=== PATIENT | male | born 1965 | race Caucasian/White ===

== ENCOUNTER 2019-05-20 14:13 | Inpatient (IN) | payer SELFPAY ==
[~2019-05-20] VITALS: Ht 160 cm; Wt 71.2 kg
[2019-05-20 14:28] VITALS: BP 173/82
--- NOTE | 2019-05-20 14:34 | NUR ---
PT AMBULATED TO ER BED 05
[2019-05-20] MEDS ORDERED: ONDANSETRON 4 MG/2 ML VIAL IVP ONE ×2 (15:00→18:00)
[2019-05-20] MEDS ORDERED: MORPHINE SULFATE 4 MG/ML SYR IVP ONE ×2 (15:00→18:00)
--- NOTE | 2019-05-20 15:00 | NUR ---
ERMD at bedside
[2019-05-20 15:29] LABS: BASOPHILS # (AUTO) 0.1 K/uL (0.00-0.22); EOSINOPHILS % (AUTO) 0.5 % (0.0-4.0); HEMATOCRIT 42.5 % (36-52); HEMOGLOBIN 14.5 g/dL (12.0-18.0); LYMPHOCYTES # (AUTO) 0.9 K/uL (2.0-11.5); LYMPHOCYTES % (AUTO) 9.1 % (20.5-51.1); MEAN CORPUSCULAR HEMOGLOBIN 28 pg (27-31); MEAN CORPUSCULAR HGB CONC 34 g/dL (33-37); MEAN CORPUSCULAR VOLUME 81.9 fL (80-94); MONOCYTES # (AUTO) 0.5 K/uL (0.8-1.0); MONOCYTES % (AUTO) 5.6 % (1.7-9.3); NEUTROPHILS # (AUTO) 7.8 K/uL (1.8-7.7); NEUTROPHILS % (AUTO) 83.8 % (42.2-75.2); PLATELET COUNT (AUTO) 180 K/uL (140-450); RED BLOOD CELL COUNT(AUTO) 5.19 MIL/uL (4.20-6.10); RED CELL DISTRIBUTION WIDTH 13.6 % (11.6-13.7); WHITE BLOOD COUNT (AUTO) 9.4 K/uL (4.8-10.8)
[2019-05-20] MEDS ORDERED: diphenhydrAMINE 50 MG/ML VIAL IVP ONE (15:35)
--- NOTE | 2019-05-20 15:40 | NUR ---
C/O UPPER ABD PAIN RADIATING TO R LOWER ABD 6/10 ABD SHARP X2 DAYS ACCOMPANIED BY DIARRHEA. PT DENIES N/V/FEVER. ABD SOFT/FLAT/NON TENDER, BOWEL SOUNDS PRESENT X4. BED IN LOW POSITION, PT PLACED IN GOWN, SIDE RAIL UP X1.
[2019-05-20 15:43] LABS: APPEARANCE,URINE CLEAR (CLEAR); BILIRUBIN,URINE NEGATIVE (NEGATIVE); BLOOD, URINE TRACE-L (NEGATIVE); COLOR,URINE YELLOW (YELLOW); LEUKOCYTE ESTERASE ,URINE NEGATIVE (NEGATIVE); NITRITE, URINE NEGATIVE (NEGATIVE); PH,URINE 5.5 (5.0-9.0); UGLUCOSE 1+ (NEGATIVE)
[2019-05-20 15:46] LABS: ALBUMIN 3.7 g/dL (3.4-5.0); CARBON DIOXIDE 28.2 mmol/L (21-32); CREATININE 0.8 mg/dL (0.6-1.3); POTASSIUM 4.2 mmol/L (3.5-5.1); TOTAL BILIRUBIN 0.4 mg/dL (0.0-1.0)
--- NOTE | 2019-05-20 17:50 | NUR ---
Pt reports pain 5/10 at this time, pt is RQ more pain medication. ERMD made aware and will put in orders
--- NOTE | 2019-05-20 18:00 | NUR ---
ermd at bedside
[2019-05-20] MEDS ORDERED: KETOROLAC 15 MG/ML VIAL IVP PRN (18:30)
[2019-05-20] MEDS ORDERED: DOCUSATE SODIUM 100 MG GELCAP PO PRN (18:30)
[2019-05-20] MEDS ORDERED: ONDANSETRON 4 MG/2 ML VIAL IM/IVP PRN (18:30)
[2019-05-20] MEDS ORDERED: MORPHINE SULFATE 2 MG/ML SYR IVP PRN (18:30)
[2019-05-20] MEDS ORDERED: ACETAMINOPHEN 325 MG TAB PO PRN (18:30)
[2019-05-20] MEDS ORDERED: DEXTROSE 50% 50 ML SYR IVP PRN (18:30)
[2019-05-20] MEDS ORDERED: METF850T PO (18:39)
--- NOTE | 2019-05-20 18:39 | NUR ---
Pt asleep in bed, at bedside
[2019-05-20] MEDS ORDERED: BISACODYL 10 MG SUPP RC ONE ×2 (19:15→20:28)
[2019-05-20 19:19] LABS: PROTHROMBIN TIME 9.2 secs (10.8-13.4)
[2019-05-20 19:29] LABS: MAGNESIUM 1.7 mg/dL (1.8-2.4); THYROID STIMULATING HORMONE 5.59 uIU/mL (0.34-3.74)
--- NOTE | 2019-05-20 19:52 | NUR ---
Patient will be admitted to care of DR. MUSTAFA. Admited to MED SURG. Will go to [id number] . Belongings list completed. Report to KADEN SCOTT.
[2019-05-20 19:54] LABS: BARBITURATE, URINE NEG. ng/ml (NEG <=200); BENZODIAZEPINE, URINE NEG. ng/mL (NEG <=200); CANNABINOID, URINE NEG. ng/mL (NEG <=50); COCAINE, URINE NEG. ng/mL (NEG <=300); OPIATE, URINE NEG. ng/mL (NEG <=2000); PHENCYCLIDINE SCREEN,URINE NEG. ng/mL (NEG <=25)
[2019-05-20 20:00] VITALS: BP 133/81
--- NOTE | 2019-05-20 20:00 | NUR ---
RECEIVED BEDSIDE REPORT FROM ED NURSE AND TOOK OVER CARE OF PT. PT IS SWISS SPEAKING MALE. ADMITTED FOR UPPER ABDOMINAL PAIN AND DIAGNOSED W/ ACUTE CHOLECYSTITIS. HX OF DM. ALLERGIC TO SHELLFISH. FULL CODE. PT IS AMBULATORY AND INDEPENDENT. HAS 20 G OF THE RIGHT AC THAT IS ASYMPTOMATIC, INTACT, AND PATENT. PT HAS COMPLAINT OF 10/10 PRESSURE PAIN OF THE ABDOMINAL. PT IS NPO EXCEPT MEDS. BED IS AT THE LOWEST POSITION AND LOCKED. PT LEFT IN SEMI FOWLERS. CALL LIGHT WITHIN REACH. WILL CONTINUE TO MONITOR PT.
[2019-05-20] MEDS ORDERED: MAG SULF 2000 MG/WATER PREMIX 50 ML IV ONE (20:10)
[2019-05-20] MEDS ORDERED: cefTRIAXone 2,000 MG VIAL ONE (20:27)
[2019-05-20] MEDS: DEXT 5% / NACL 0.45% 1,000 ML IV SCH (20:39)
[2019-05-20] MEDS: cefTRIAXone 2,000 MG in DEXTROSE 5% 100 ML IV SCH (20:39)
[2019-05-20] MEDS: BLOOD GLUCOSE MONITORING 1 DEV DEV FS SCH (21:03)
[2019-05-20] MEDS: metroNIDAZOLE 500 MG/NS PREMIX 100 ML IV SCH (22:01)
[2019-05-20] MEDS ORDERED: INFLUENZA VACCINE QUAD 0.5 ML SYR IMVAC PRN (22:40)
[2019-05-21] VITALS: BP 109/67
--- NOTE | 2019-05-21 00:15 | NUR ---
CHECKED ON PT. PT ASLEEP. BED IN LOWEST POSITION, LOCKED. CALL LIGHT WITHIN REACH. WILL CONTINUE TO MONITOR.
--- NOTE | 2019-05-21 02:16 | NUR ---
CHECKED ON PT. NO SIGNS OF DISTRESS. ASSISTED PT TO THE RESTROOM TO VOID. BED IS IN LOWEST POSITION, LOCKED. CALL LIGHT WITHIN REACH. WILL CONTINUE TO MONITOR
[2019-05-21] MEDS: metroNIDAZOLE 500 MG/NS PREMIX 100 ML IV SCH ×3 (04:31→20:27)
[2019-05-21] MEDS: DEXT 5% / NACL 0.45% 1,000 ML IV SCH ×2 (04:33→11:34)
[2019-05-21 06:04] LABS: BASOPHILS # (AUTO) 0.1 K/uL (0.00-0.22); BASOPHILS % (AUTO) 1.2 % (0.0-2.0); EOSINOPHILS # (AUTO) 0.2 K/uL (0-0.4); EOSINOPHILS % (AUTO) 2.9 % (0.0-4.0); HEMATOCRIT 40.4 % (36-52); LYMPHOCYTES # (AUTO) 1.8 K/uL (2.0-11.5); LYMPHOCYTES % (AUTO) 30.9 % (20.5-51.1); MEAN CORPUSCULAR HEMOGLOBIN 28 pg (27-31); MEAN CORPUSCULAR HGB CONC 35 g/dL (33-37); MONOCYTES # (AUTO) 0.6 K/uL (0.8-1.0); MONOCYTES % (AUTO) 9.6 % (1.7-9.3); NEUTROPHILS # (AUTO) 3.2 K/uL (1.8-7.7); NEUTROPHILS % (AUTO) 55.4 % (42.2-75.2); PLATELET COUNT (AUTO) 176 K/uL (140-450); RED BLOOD CELL COUNT(AUTO) 4.99 MIL/uL (4.20-6.10); RED CELL DISTRIBUTION WIDTH 13.6 % (11.6-13.7); WHITE BLOOD COUNT (AUTO) 5.8 K/uL (4.8-10.8)
[2019-05-21] MEDS: INSULIN LISPRO SLIDING SCALE 100 UNITS/ML VIAL SUBQ PRN ×4 (06:22→20:31)
--- NOTE | 2019-05-21 06:22 | NUR ---
BLOOD SUGAR CHECKED WITH 175, COVERAGE GIVEN, DENIES ANY PAIN, MAINTAINED ON NPO, IVF INFUSING WELL, MONITORED CLOSELY.
[2019-05-21 06:33] LABS: MAGNESIUM 2.3 mg/dL (1.8-2.4); PHOSPHORUS 2.7 mg/dL (2.5-4.9)
[2019-05-21 06:34] LABS: CHOL/HDL RATIO 3.9 (1-4.5)
[2019-05-21 06:46] LABS: ANION GAP 11.9 (8-16); CARBON DIOXIDE 29.1 mmol/L (21-32); CREATININE 0.7 mg/dL (0.6-1.3)
--- NOTE | 2019-05-21 07:22 | NUR ---
RECEIVED BEDSIDE REPORT FROM MARINE EQUIPMENT TEST ENGINEER NURSE. PT IS ASLEEP, NO S/S OF DISTRESS NOTED. PT IS ON ROOM AIR, SKIN IS INTACT. PT IS NPO FOR HIDA SCAN THIS AM. IV IT R AC 20 G INFUSING D5 1/2 NS 120 ML/HR. PT IS AMBULATORY. CALL LIGHT IS WITHIN REACH. WILL CONTINUE TO MONITOR.
--- NOTE | 2019-05-21 07:25 | NUR ---
PT SLEEPING, NO SIGNS OF DISTRESS, BEDSIDE REPORT GIVEN TO KADEN EVERETT FOR CONTINUITY OF CARE.
[2019-05-21] MEDS: BLOOD GLUCOSE MONITORING 1 DEV DEV FS SCH ×4 (07:29→20:31)
[2019-05-21 08:00] VITALS: BP 122/72
--- NOTE | 2019-05-21 08:32 | NUR ---
PT TAKEN FOR HIDA SCAN
--- NOTE | 2019-05-21 10:10 | NUR ---
PT IS BACK FROM HIDA SCAN. Addendum: 05/21/19 at [address] RN HIDA SCAN NEGATIVE FOR CHOLECYSTITIS OR BILIARY OBSTRUCTION
[2019-05-21] MEDS: metFORMIN 850 MG TAB PO SCH ×2 (10:27→17:31)
[2019-05-21] MEDS: LACTOBACILLUS RHAMNOSUS GG 1 EACH CAP PO SCH (10:27)
[2019-05-21] MEDS: PANTOPRAZOLE 40 MG TABEC PO SCH (10:27)
[2019-05-21] MEDS: cefTRIAXone 2,000 MG in DEXTROSE 5% 100 ML IV SCH (10:32)
--- NOTE | 2019-05-21 10:41 | NUR ---
AM MEDS ADMINISTERED, PT TOLERATED WELL.
--- NOTE | 2019-05-21 11:32 | NUR ---
PT LYING COMFORTABLY IN BED, NO DISTRESS, NO C/O PAIN. A RELATIVE IS VISITING AT BEDSIDE.
--- NOTE | 2019-05-21 12:02 | NUR ---
PT ADVANCED TO FULL LIQUID DIET.
[2019-05-21] MEDS: NACL 0.9% 1,000 ML IV SCH ×2 (12:27→23:23)
--- NOTE | 2019-05-21 12:50 | NUR ---
PT EATING FULL LIQUID LUNCH, TOLERATING IT WELL.
--- NOTE | 2019-05-21 13:51 | NUR ---
PT SEEN BY DR ROBERT
[2019-05-21 16:00] VITALS: BP 106/61
--- NOTE | 2019-05-21 18:33 | NUR ---
PT IS AWAKE AND COMFORTABLE, VISITING WITH HIS . NO S/S OF DISTRESS, DENIES PAIN.
--- NOTE | 2019-05-21 19:21 | NUR ---
PT ENDORSED TO CLINICAL GENETICS LABORATORY CHIEF NURSE IN STABLE CONDITION.
--- NOTE | 2019-05-21 19:22 | NUR ---
RECEIVED PT ON BED TALKING TO FAMILY MEMBERS AT BEDSIDE, TOLERABLE PAIN 2/10 AT THIS TIME, STATED TOLERATING FULL LIQUID DIET, IVF INFUSING WELL, PLAN OF CARE DISCUSSED, SAFETY MEASURES IN PLACE, CALL LIGHT WITHIN REACH.
--- NOTE | 2019-05-21 20:35 | NUR ---
BLOOD SUGAR CHECKED WITH 183 RESULT, COVERAGE GIVEN, BEDTIME SNACK PROVIDED, CONSUMED 100%, ALL NEEDS ATTENDED.
[2019-05-22] VITALS: BP 124/76
--- NOTE | 2019-05-22 | NUR ---
SEEN PT SLEEPING, EASILY AROUSABLE, VITAL SIGNS STABLE, TOLERABLE PAIN 2/10 AT THIS TIME, IVF INFUSING WELL, CONTINUE TO MONITOR CLOSELY.
--- NOTE | 2019-05-22 03:00 | NUR ---
ROUNDS MADE, SEEN PT JUST BACK FROM TOILET, DENIES PAIN AT THIS TIME BUT STATED HAVING LOOSE STOOL, PT WAS MEDICATED WITH DULCOLAX SUPPOSITORY ON FOR CONSTIPATION, WILL MONITOR CLOSELY.
[2019-05-22] MEDS: metroNIDAZOLE 500 MG/NS PREMIX 100 ML IV SCH ×2 (04:19→12:56)
--- NOTE | 2019-05-22 04:25 | NUR ---
PT AWAKE WATCHING A FOOTBALL GAME ON TELEVISION, DENIES ANY PAIN, DUE FLAGYL IVPB ADMINISTERED, ALL NEEDS ATTENDED, MONITORED CLOSELY.
[2019-05-22] MEDS: BLOOD GLUCOSE MONITORING 1 DEV DEV FS SCH ×2 (06:32→11:50)
--- NOTE | 2019-05-22 07:13 | NUR ---
PT AWAKE, NO SIGNS OF DISTRESS, BEDSIDE REPORT GIVEN TO KADEN HEADLEY FOR CONTINUITY OF CARE.
--- NOTE | 2019-05-22 07:13 | NUR ---
RECEIVED PATIENT FROM GRANTS SPECIALIST NURSE FOR CONTINUITY OF CARE. PATIENT IS AWAKE, PERSIAN SPEAKING BUT UNDERSTANDS JAMAICAN. RESPIRATIONS EVEN AND UNLABORED, ROOM AIR. VISIBLE CHEST RISE NOTED. MED-SURG. ABDOMEN SOFT, ROUND, NONTENDER. BOWEL SOUNDS ACTIVE X4 QUADS. SKIN WARM, DRY, AND INTACT. IV IN THE RIGHT AC G20 RUNNING NS AT 100 ML/HR. IV PATENT AND FLUSHING WELL. PATIENT IS AMBULATORY, UNIVERSAL FALL PRECAUTIONS. BED IN LOW POSITION. CALL LIGHT IS WITHIN REACH. WILL CONTINUE TO MONITOR.
[2019-05-22 07:22] LABS: BASOPHILS # (AUTO) 0.1 K/uL (0.00-0.22); BASOPHILS % (AUTO) 0.9 % (0.0-2.0); EOSINOPHILS # (AUTO) 0.3 K/uL (0-0.4); EOSINOPHILS % (AUTO) 4.8 % (0.0-4.0); HEMATOCRIT 39.9 % (36-52); HEMOGLOBIN 13.8 g/dL (12.0-18.0); LYMPHOCYTES # (AUTO) 1.7 K/uL (2.0-11.5); LYMPHOCYTES % (AUTO) 27.4 % (20.5-51.1); MEAN CORPUSCULAR HEMOGLOBIN 28 pg (27-31); MEAN CORPUSCULAR HGB CONC 35 g/dL (33-37); MEAN CORPUSCULAR VOLUME 81.7 fL (80-94); MONOCYTES # (AUTO) 0.5 K/uL (0.8-1.0); MONOCYTES % (AUTO) 8.6 % (1.7-9.3); NEUTROPHILS # (AUTO) 3.7 K/uL (1.8-7.7); NEUTROPHILS % (AUTO) 58.3 % (42.2-75.2); PLATELET COUNT (AUTO) 174 K/uL (140-450); RED BLOOD CELL COUNT(AUTO) 4.88 MIL/uL (4.20-6.10); RED CELL DISTRIBUTION WIDTH 13.6 % (11.6-13.7); WHITE BLOOD COUNT (AUTO) 6.3 K/uL (4.8-10.8)
[2019-05-22 07:48] LABS: ANION GAP 10.5 (8-16); CARBON DIOXIDE 31.1 mmol/L (21-32); CREATININE 0.9 mg/dL (0.6-1.3); POTASSIUM 4.6 mmol/L (3.5-5.1)
[2019-05-22 07:58] LABS: MAGNESIUM 1.9 mg/dL (1.8-2.4); PHOSPHORUS 3.3 mg/dL (2.5-4.9)
[2019-05-22 08:00] VITALS: BP 136/77
[2019-05-22] MEDS: NACL 0.9% 1,000 ML IV SCH (08:29)
[2019-05-22] MEDS: PANTOPRAZOLE 40 MG TABEC PO SCH (08:29)
[2019-05-22] MEDS: metFORMIN 850 MG TAB PO SCH (08:29)
[2019-05-22] MEDS: cefTRIAXone 2,000 MG in DEXTROSE 5% 100 ML IV SCH (08:29)
[2019-05-22] MEDS: LACTOBACILLUS RHAMNOSUS GG 1 EACH CAP PO SCH (08:29)
--- NOTE | 2019-05-22 08:29 | NUR ---
GIVEN MORNING MEDICATIONS PO SCHEDULED. HANG ROCEPHIN VIA IVPB. EXPLAINED TO PATIENT MEDS AND SIDE EFFECTS. PATIENT VERBALIZED UNDERSTANDING. WILL CONTINUE TO MONITOR
--- NOTE | 2019-05-22 08:36 | NUR ---
PATIENT HAS BEEN SCREENED AND CATEGORIZED MODERATE NUTRITION RISK. PATIENT WILL BE SEEN WITHIN 3-5 DAYS OF ADMISSION. 05/23/19 05/25/[address]
[2019-05-22] MEDS ORDERED: METF850T PO (09:12)
[2019-05-22 09:30] VITALS: BP 136/77
--- NOTE | 2019-05-22 10:51 | NUR ---
FOLLOWED UP WITH SOCIAL SERVICE, GUY, REGARDING [facility]. SHE'LL BE MEETING WITH THE PATIENT SHORTLY
--- NOTE | 2019-05-22 11:35 | NUR ---
DISCHARGE PLANNING: THIS IS A 53 YEAR OLD MALE PATIENT FROM HOME, WHO CAME IN DUE TO GRADUAL ONSET ABDOMINAL PIAN X 1 DAY. PAST MEDICAL HISTORY INCLUDE DM II. INITIAL DIAGNOSIS OF ACUTE CHOLECYSTITIS. CURRENT LABS INCLUDE WBC 6.3, H/H 13.8/39.9, NA/K 139/4.6, BUN/CREA 13/0.9. UDS NEGATIVE. SURGICAL CONSULT WITH DR ROBERT IN PLACE. ON METRONIDAZOLE AND ROCEPHIN. FOR DC TO HOME TODAY.
--- NOTE | 2019-05-22 12:10 | NUR ---
GIVEN INSULIN 3 UNITS FOR BLOOD GLUCOSE 193. GIVEN IT IN THE LEFT UPPER ARM. EXPLAINED TO PATIENT MED AND SIDE EFFECTS. PATIENT VERBALIZED UNDERSTANDING. WILL CONTINUE TO MONITOR
[2019-05-22] MEDS: INSULIN LISPRO SLIDING SCALE 100 UNITS/ML VIAL SUBQ PRN (12:13)
--- NOTE | 2019-05-22 12:56 | NUR ---
HANG FLAGYL VIA IVPB. EXPLAINED TO PATIENT MED AND SIDE EFFECTS. PATIENT VERBALIZED UNDERSTANDING. BED IN LOW POSITION. CALL LIGHT IS WITHIN REACH. WILL CONTINUE TO MONITOR
--- NOTE | 2019-05-22 13:23 | NUR ---
PATIENT REFUSED FOR BLOOD SUGAR TO BE CHECKED. GIVEN CRANBERRY JUICE TO BRING SUGAR BACK UP. WILL CONTINUE TO MONITOR Addendum: 05/22/19 at 1411 by Princess Adali Araujo RN DISREGARD. WRONG ENTRY
--- NOTE | 2019-05-22 14:05 | NUR ---
GIVEN FLU VACCINE IN THE LEFT UPPER ARM. EXPLAINED TO PATIENT MED. PATIENT VERBALIZED UNDERSTANDING.
--- NOTE | 2019-05-22 14:16 | NUR ---
GIVEN DISCHARGE ORDER. USED [employer] ROOM SERVICE MANAGER DANUTA #[id number]. DISCUSSED TO PATIENT THAT HE NEEDS TO MAKE AN APPT WITH HIS PCP WITHIN 3-5 DAYS OR IF NOT, TO MAKE AN APPT TO [facility]. EXPLAINED THAT DR. NEAL CONTINUED HIS METFORMIN AND HE NEEDS TO PICK IT UP FROM HIS PREFERRED PHARMACY. PATIENT REQUESTED TO BE OFF FROM WORK FOR 2 DAYS. WILL INFORM RESIDENT DOCTOR. PATIENT VERBALIZED UNDERSTANDING. NO FURTHER QUESTIONS Addendum: 05/22/19 at 1418 by Princess Adali Araujo RN DISCHARGE INSTRUCTION GIVEN.
--- NOTE | 2019-05-22 14:38 | NUR ---
REMOVED IV AND ID BAND. WILL WAIT FOR DAUGHTER TO COIL FINISHER HIM UP
--- NOTE | 2019-05-22 14:56 | NUR ---
DR. WALLS STATED NO TO WORK EXCUSE. PATIENT IS AWARE
--- NOTE | 2019-05-22 15:00 | NUR ---
DISCHARGED PATIENT VIA WHEELCHAIR. NO PAIN. NO SOB. PATIENT IS IN STABLE CONDITION
[2019-05-23 06:08] LABS: HEPATITIS A ANTIBODY IGM Negative (Negative); HEPATITIS B CORE AB TOTAL Negative (Negative); HEPATITIS B SURFACE ANTIBODY Non Reactive (.); HEPATITIS B SURFACE ANTIGEN Negative (Negative)
== END 2019-05-22 15:00 | disposition home or self-care (01) | DRG 446 ==
LOC: MED 14:13 → MTU 18:51
PROVIDERS: ADMIT General Practice; ATTEND General Practice
DX: K81.0 Acute cholecystitis (principal); I10 Essential (primary) hypertension; E86.0 Dehydration; E11.21 Type 2 diabetes mellitus with diabetic nephropathy; E88.89 Other specified metabolic disorders; Z79.84 Long term (current) use of oral hypoglycemic drugs; Z91.013 Allergy to seafood; Z83.3 Family history of diabetes mellitus; Z23 Encounter for immunization
CPT/HCPCS: 36415; 76705; 78445; 80048; 80053; 80305; 81003; 82150; 82948; 83036; 83690; 83735; 83880; 84100; 84134; 84439; 84443; 85025; 85610; 85730; 86704; 86706; 86708; 86709; 86803; 87081; 87086; 87340; 93005; 96374; 96375; 96376; 99285; A9510; J0696; J1200; J1885; J2270; J2405; J3475; J3490; J7030; J7060; Q0092; Q9967

== ENCOUNTER 2019-07-14 14:43 | Inpatient (IN) | payer MEDICAID ==
[~2019-07-14] VITALS: Ht 162.6 cm; Wt 78.9 kg
[~2019-07-14 14:43] MED LIST: METF850T PO
[2019-07-14 14:56] VITALS: BP 134/82
--- NOTE | 2019-07-14 15:17 | NUR ---
DR. AGUIRRE AT BEDSIDE.
--- NOTE | 2019-07-14 15:17 | NUR ---
Note undone in EDM - 07/14/19 at 1522 by [facility] 53 Y/M PRESENTS TO ED FOR RUQ ABD PAIN X 6 DAYS. PT SAW HIS PCP AND WAS GIVEN OMEPRAZOLE AND ADVISED TO COME FOLLOW UP IN ED. PT REPORTS PAIN IS ON AND OFF 08/05, EDEMA NOTED TO RUQ OF ABD. PT REPORTED CHILLS LAST NIGHT. PT DENIES N/V/D/CONTIPAITON OR FEVERS. PT A &O X 4. RR EVEN AND UNLABORED. LUNGS CLEAR. ABD SOFT. BS ACTIVE X 4. EDEMA NOTED TO RUQ OF ABD, TENDER AND GUARDING UPON PALPATION. DENIES DYSURIA. PMH- DM RX- OMEPRAZOLE, METFORMIN ALLERGIES- SHELLFISH
--- NOTE | 2019-07-14 15:20 | NUR ---
53 Y/M PRESENTS TO ED FOR RUQ ABD PAIN X 6 DAYS. PT SAW HIS PCP AND WAS GIVEN OMEPRAZOLE AND ADVISED TO COME FOLLOW UP IN ED. PT REPORTS PAIN IS ON AND OFF 5/10, EDEMA NOTED TO RUQ OF ABD. PT REPORTED CHILLS LAST NIGHT. PT DENIES N/V/D/CONTIPAITON OR FEVERS. PT A &O X 4. RR EVEN AND UNLABORED. LUNGS CLEAR. ABD SOFT. BS ACTIVE X 4. EDEMA NOTED TO RUQ OF ABD, TENDER AND GUARDING UPON PALPATION. DENIES DYSURIA. PMH- DM RX- OMEPRAZOLE, METFORMIN ALLERGIES- SHELLFISH
[2019-07-14] MEDS ORDERED: NACL 0.9% 500 ML IV ONE (15:27)
[2019-07-14] MEDS ORDERED: KETOROLAC 30 MG/ML VIAL IVP ONE (15:30)
--- NOTE | 2019-07-14 16:10 | NUR ---
STAT LABS DRAWN FROM IV AND SPOKE TO RAUN FROM LAB TO [employer] ATTENDANT SPECIMENS.
[2019-07-14 16:16] LABS: BASOPHILS # (AUTO) 0.1 K/uL (0.00-0.22); BASOPHILS % (AUTO) 0.8 % (0.0-2.0); EOSINOPHILS # (AUTO) 0.2 K/uL (0-0.4); HEMATOCRIT 40.8 % (36-52); HEMOGLOBIN 13.5 g/dL (12.0-18.0); LYMPHOCYTES # (AUTO) 1.4 K/uL (2.0-11.5); LYMPHOCYTES % (AUTO) 22.2 % (20.5-51.1); MEAN CORPUSCULAR HEMOGLOBIN 28 pg (27-31); MEAN CORPUSCULAR HGB CONC 33 g/dL (33-37); MEAN CORPUSCULAR VOLUME 84.7 fL (80-94); MONOCYTES # (AUTO) 0.6 K/uL (0.8-1.0); MONOCYTES % (AUTO) 9.1 % (1.7-9.3); NEUTROPHILS # (AUTO) 3.9 K/uL (1.8-7.7); NEUTROPHILS % (AUTO) 63.9 % (42.2-75.2); PLATELET COUNT (AUTO) 269 K/uL (140-450); RED BLOOD CELL COUNT(AUTO) 4.82 MIL/uL (4.20-6.10); RED CELL DISTRIBUTION WIDTH 13.8 % (11.6-13.7); WHITE BLOOD COUNT (AUTO) 6.2 K/uL (4.8-10.8)
[2019-07-14 16:37] LABS: ALBUMIN 2.7 g/dL (3.4-5.0); CARBON DIOXIDE 27.1 mmol/L (21-32); CREATININE 1.1 mg/dL (0.6-1.3); POTASSIUM 4.1 mmol/L (3.5-5.1); TOTAL BILIRUBIN 0.2 mg/dL (0.0-1.0)
--- NOTE | 2019-07-14 17:47 | NUR ---
PT RESTING IN BED. RR EVEN AND UNLABORED. VSS. ALL NEED MET AT THIS TIME. WILL CONTINUE TO MONITOR.
[2019-07-14] MEDS ORDERED: DEXTROSE 50% 50 ML SYR IVP PRN (18:15)
[2019-07-14] MEDS ORDERED: ACETAMINOPHEN 325 MG TAB PO PRN (18:15)
[2019-07-14] MEDS ORDERED: ONDANSETRON 4 MG/2 ML VIAL IM/IVP PRN (18:15)
[2019-07-14] MEDS ORDERED: DOCUSATE SODIUM 100 MG GELCAP PO PRN (18:15)
--- NOTE | 2019-07-14 18:15 | NUR ---
PATIENT ARRIVED VIA WHEELCHAIR FROM ER. RECEIVED REPORT FROM KADEN ENNIS. PATIENT AWAKE, ALERT AND ORIENTED X4. INTRODUCED SELF. PLANS OF CARE DISCUSSED. IV INTACT AND PATENT TO RIGHT AC. ORIENTED TO STAFF, ROOM AND CALL LIGHT. WILL ENDORSE TO NIGHT NURSE FOR CONTINUITY OF CARE.
--- NOTE | 2019-07-14 18:15 | NUR ---
Patient will be admitted to care of DR. MUSTAFA. Admited to [facility]. Will go to room 112 B. Belongings list completed. Report to KADEN GALVEZ.
[2019-07-14 18:47] VITALS: BP 140/87
[2019-07-14] MEDS: DEXT 5% /NACL 0.9% 1,000 ML IV SCH (18:49)
[2019-07-14 19:07] LABS: MAGNESIUM 2.1 mg/dL (1.8-2.4); PHOSPHORUS 3.8 mg/dL (2.5-4.9)
--- NOTE | 2019-07-14 19:15 | NUR ---
RECEIVED ENDORSEMENT FROM AM SHIFT RN. PATIENT IS LYING IN BED. AWAKE, ALERT, ORIENTED X4. RESPIRATION EVEN AND UNLABORED. DENIES PAIN. ALLERGIC TO SHELLFISH. FULL CODE. PATIENT IS ON NPO. WITH IV SITE TO RAC 20G. INTACT AND PATENT WITH INFUSING IVF. PLAN OF CARE WAS DISCUSSED. CALL LIGHT WITHIN REACH.
[2019-07-14 19:29] LABS: PROTHROMBIN TIME 11.1 secs (10.8-13.4)
[2019-07-14] MEDS: BLOOD GLUCOSE MONITORING 1 DEV DEV FS SCH (21:00)
[2019-07-14] MEDS ORDERED: MORPHINE SULFATE 2 MG/ML SYR IVP SCH (21:10)
--- NOTE | 2019-07-14 21:30 | NUR ---
PATIENT WAS TAKEN TO NUCLEAR MEDICINE DEPT. TO DO HIDA SCAN.
--- NOTE | 2019-07-14 22:32 | NUR ---
PATIENT IS CURRENTLY DOING THE HIDA SCAN.
--- NOTE | 2019-07-14 22:55 | NUR ---
GAVE MORPHINE 2MG IVP FOR HIDA SCAN PROCEDURE. PATIENT TOLERATED WELL.
[2019-07-15] VITALS: BP 135/78
--- NOTE | 2019-07-15 00:10 | NUR ---
PATIENT FINISHED HIDA SCAN AND BACK IN HIS ROOM. PATIENT IS RESTING. KEPT COMFORTABLE.
[2019-07-15] MEDS ORDERED: cefTRIAXone 1,000 MG VIAL ONE (00:43)
--- NOTE | 2019-07-15 00:47 | NUR ---
ROCEPHIN 1G IVPB GIVEN ORDERED. NO A/R NOTED. TOLERATED WELL.
--- NOTE | 2019-07-15 00:48 | NUR ---
PATIENT REFUSED INSULIN INJECTION 2 UNITS. EXPLAINED RISKS AND BENEFITS BUT STILL PATIENT REFUSED. NO SOB. PATIENT DENIES PAIN. NOT IN ANY ACUTE DISTRESS. WILL CONTINUE TO MONITOR.
--- NOTE | 2019-07-15 01:00 | NUR ---
PRELIMINARY REPORT OF HIDA SCAN PROCEDURE WAS RECEIVED VIA FAX AND FILED IT TO PATIENT'S CHART.
[2019-07-15] MEDS: INSULIN LISPRO SLIDING SCALE 100 UNITS/ML VIAL SUBQ PRN ×5 (01:07→22:03)
[2019-07-15 04:00] VITALS: BP 136/76
[2019-07-15] MEDS: metroNIDAZOLE 500 MG/NS PREMIX 100 ML IV SCH ×3 (04:05→21:16)
--- NOTE | 2019-07-15 04:09 | NUR ---
DUE MEDS GIVEN ORDERED. NO A/R NOTED. TOLERATED WELL. PATIENT IS SLEEPING.
[2019-07-15] MEDS: BLOOD GLUCOSE MONITORING 1 DEV DEV FS SCH ×6 (06:40→21:00)
[2019-07-15] MEDS: DEXT 5% /NACL 0.9% 1,000 ML IV SCH ×2 (06:44→12:41)
--- NOTE | 2019-07-15 07:10 | NUR ---
PATIENT IS IN STABLE CONDITION. ENDORSE TO AM SHIFT RN FOR CONTINUITY OF CARE.
[2019-07-15 07:12] LABS: BASOPHILS % (AUTO) 0.9 % (0.0-2.0); EOSINOPHILS # (AUTO) 0.3 K/uL (0-0.4); EOSINOPHILS % (AUTO) 5.8 % (0.0-4.0); HEMATOCRIT 39.5 % (36-52); HEMOGLOBIN 13.2 g/dL (12.0-18.0); LYMPHOCYTES # (AUTO) 1.8 K/uL (2.0-11.5); LYMPHOCYTES % (AUTO) 35.3 % (20.5-51.1); MEAN CORPUSCULAR HEMOGLOBIN 28 pg (27-31); MEAN CORPUSCULAR HGB CONC 34 g/dL (33-37); MEAN CORPUSCULAR VOLUME 84.7 fL (80-94); MONOCYTES # (AUTO) 0.6 K/uL (0.8-1.0); MONOCYTES % (AUTO) 11.6 % (1.7-9.3); NEUTROPHILS # (AUTO) 2.3 K/uL (1.8-7.7); NEUTROPHILS % (AUTO) 46.4 % (42.2-75.2); PLATELET COUNT (AUTO) 263 K/uL (140-450); RED BLOOD CELL COUNT(AUTO) 4.67 MIL/uL (4.20-6.10)
--- NOTE | 2019-07-15 07:16 | NUR ---
RECEIVED REPORT FROM B[employer] PRODUCTION ASSOCIATE NURSE FOR CONTINUITY OF CARE. PT IS LYING IN BED, SUPINE, AA&OX4. RESPIRATIONS ARE EVEN AND UNLABORED, BREATHING TO RA. RECEIVED REPORT FROM [facility] IV IS INTACT AND PATENT. SKIN INTACT. REVIEWED PLAN OF CARE WITH PT. NO DISTRESS NOTED. SAFETY MEASURES IN PLACE; CALL LIGHT WITHIN REACH, BED IN LOW POSITION. WILL CONTINUE TO MONITOR.
[2019-07-15 07:26] LABS: ANION GAP 10.2 (8-16); CARBON DIOXIDE 28.1 mmol/L (21-32); POTASSIUM 4.3 mmol/L (3.5-5.1)
[2019-07-15 08:00] VITALS: BP 122/72
[2019-07-15] MEDS ORDERED: metFORMIN 850 MG TAB PO SCH (09:00)
[2019-07-15] MEDS: PANTOPRAZOLE 40 MG INJ VIAL IVP SCH (10:37)
[2019-07-15] MEDS: ATORVASTATIN 20 MG TAB PO SCH (10:38)
--- NOTE | 2019-07-15 10:45 | NUR ---
PT'S SCHEDULED MEDS GIVEN. BP: 122/72. PT TOLERATED PO MED WELL. MEDICATION EDUCATION PROVIDED, WITH PT VERBALIZING UNDERSTANDING. NO DISTRESS NOTED. SAFETY MEASURES IN PLACE WILL CONTINUE TO MONITOR.
--- NOTE | 2019-07-15 12:02 | NUR ---
RECEIVED CALL FROM LEIDA IN RADIOLOGY. LEIDA STATED THAT THE PRELIMINARY REPORT FOR [facility] IS READY. DR. VILLALOBOS IS AWARE.
--- NOTE | 2019-07-15 12:50 | NUR ---
URINE SAMPLE COLLECTED. IV FLUIDS HUNG, AND RUNNING PER ORDERS. BLOOD GLUES LEVEL: 183. WILL PROVIDE COVERAGE. PT IS SITTING ON BED, WATCHING TV. NO DISTRESS NOTED WILL CONTINUE TO MONITOR.
--- NOTE | 2019-07-15 13:16 | NUR ---
DISCHARGE PLANNING: THIS IS A 53 Y/O MALE PATIENT FROM HOME, WHO CAME IN DUE TO RIGHT SIDED ABDOMINAL PAIN X1 WEEK. PAST MEDICAL HISTORY INCLUDE DM. INITIAL DIAGNOSIS OF CHOLECYSTITIS. GALLBLADDER US SHOWED GALLBLADDER SLUDGE WITH GALLBLADDER WALL THICKENING AND POSSIBLE PERICHOLECYSTIC FLUID, FATTY LIVER. SURGICAL CONSULT WITH DR. EATON IN PLACE-NOT SEEN YET. PATIENT IS PLACED ON NPO FOR POSSIBLE CHOLECYSTECTOMY TODAY. ON PROTONIX, FLAGYL AND ROCEPHIN IV. DC PLAN BACK TO HOME ONCE STABLE. Addendum: 07/17/19 at 1238 by Veronica Benoit CM DC PLANNING: POST OP DAY #[address] EATON , INCREASED TRANSAMINITIS POST OP RECOMMENDED GI CONSULT WITH DR RAMIREZ, ORDERED HIDA SCAN . DC PLAN PER DR RAMIREZ. CM TO FOLLOW Addendum: 07/18/19 at 1128 by Veronica Benoit DC PLANNING: RECEIVED A CALL FROM DR EATON STATED PATIENT CESAR MATHIS NEEDS TO BE TRANSFERED TO THE HIGHER LEVEL DR EATON CONTACTED [facility] SURGEON DR JUAREZ IS ACCEPTING PATIENT HIS NUMBER [phone] AND HE ALSO SPOKE WITH THE CM [phone] OR [phone] . RECEIVED A CALL FROM THE CM AT [facility] AND REQUESTED THE PAPERWORK TO BE TRANSFERRED TO [phone] AND FAXED ALL THE PAPERWORK CM TO FOLLOW Addendum: 07/18/19 at 1334 by Veronica Benoit DC PLANNING: RECEIVED A CALL FROM [facility] SPOKE WITH KRISTOFER VASQUEZ WAITING FOR THE BED , BED CONTROL WILL CALL BACK WHEN BED AVAILABLE. ARRANGED TRANSPORT WITH [facility] PLACE IT WILL CALL . CM TO FOLLOW Addendum: 07/18/19 at 1608 by Mor Esquivel WILBER contacted [facility] and spoke to Kayy [phone]. Per Kayy, bed is still unavailable. Addendum: 07/18/19 at 1638 by Veronica Benoit DC PLANNING: STILL WAITING FOR BED FROM [facility] FOLLOW UP [phone] AND ONCE YOU RECEIVE A BED THE TRANSPORT IS ON WILL CALL WITH [facility] #[phone]
--- NOTE | 2019-07-15 13:28 | NUR ---
2 UNITS OF INSULIN COVERAGE GIVEN FOR BGL: 183. FLAGYL IVPB HUNG, AND RUNNING PER ORDERS. WILL CONTINUE TO MONITOR.
[2019-07-15] MEDS ORDERED: MEPERIDINE 25 MG/ML SYR IVP PRN (13:55)
[2019-07-15] MEDS ORDERED: diphenhydrAMINE 50 MG/ML VIAL IVP PRN (13:55)
[2019-07-15] MEDS ORDERED: ONDANSETRON 4 MG/2 ML VIAL IVP PRN (13:55)
[2019-07-15] MEDS ORDERED: NACL 0.9% 1,000 ML IV SCH (13:55)
--- NOTE | 2019-07-15 14:05 | NUR ---
PT WAS TAKEN OFF UNIT FOR SURGERY, LAPAROSCOPIC CHOLECYSTECTOMY. SPOKE TO PT'S DAUGHTER , IVON, WHO WOOLD LIKE TO BE NOTIFIED WHEN PT IS BACK ON UNIT FROM SURGERY. IVON: [phone].
[2019-07-15] MEDS ORDERED: BUPIVACAINE-MPF 0.25% 30 ML VIAL INJ ONE (14:11)
[2019-07-15 16:00] VITALS: BP 122/73
[2019-07-15] MEDS: NACL 0.9% 1,000 ML IV SCH ×2 (16:35→22:46)
[2019-07-15 17:13] LABS: ALBUMIN 2.4 g/dL (3.4-5.0); ANION GAP 9.6 (8-16); CARBON DIOXIDE 26.3 mmol/L (21-32); CREATININE 1.1 mg/dL (0.6-1.3); POTASSIUM 4.9 mmol/L (3.5-5.1); TOTAL BILIRUBIN 0.4 mg/dL (0.0-1.0)
[2019-07-15] MEDS ORDERED: HYDROmorphone PFS 2 MG/ML SYR ONE (17:17)
[2019-07-15] MEDS: HYDROmorphone 1 MG/ML AMP IVP PRN ×2 (17:19→17:29)
--- NOTE | 2019-07-15 17:31 | NUR ---
PT OFF UNIT CUP LEFT AT BEDSIDE IS ALSO LEFT AT BEDSIDE
--- NOTE | 2019-07-15 17:40 | NUR ---
PT IS BACK ON THE UNIT FROM SURGERY. REPORT GIVEN BY AGUSTIN. 4 SMALL ABDOMINAL INCISIONS NOTED, SEALED WITH DERMABOND. PT IS RESTING. VITAL SIGNS TAKEN; BP:122/73, PULSE: 85, TEMP: 97.2, REP: 20, SPO2: 91% NO DISTRESS NOTED. SAFETY MEASURES IN PLACE. WILL CONTINUE TO MONITOR.
--- NOTE | 2019-07-15 18:01 | NUR ---
SPOKE WITH IVON, PT'S DAUGHTER. INFORMED HER THAT THE PT IS NOW BACK ON THE UNIT AND IN STABLE CONDITION. PLEASE CALL IVON WITH UPDATES, AND INFORM PT THAT FAMILY WOULD LIKE TO SPEAK WITH HIM, WHEN HE AWAKES.
--- NOTE | 2019-07-15 19:29 | NUR ---
ENDORSED TO GRAIN ELEVATOR MOTOR STARTER NURSE FOR CONTINUITY OF CARE. PATIENT IS IN STABLE CONDITION.
--- NOTE | 2019-07-15 19:30 | NUR ---
RECEIVED FROM AM RN IN BED S/P LAP CHOLECYSTECTOMY . PT. SLEEPING AT THIS TIME. CALL LIGHT WITH IN REACH. IVF SITE TO RAC #20 . NO BLEEDING TO SURGICAL SITE. VITAL SIGNS AT THIS TIME 123/71, 92 % 02 SAT AT ROOM AIR, 76 PULSE AND 97 TEMPERATURE PER TEMPORAL SCAN. WILL CONTINUE CARE/ ASSEMBLY OPERATOR FOR PT .
[2019-07-15 19:43] VITALS: BP 123/71
[2019-07-15 20:40] LABS: APPEARANCE,URINE CLEAR (CLEAR); BILIRUBIN,URINE NEGATIVE (NEGATIVE); BLOOD, URINE NEGATIVE (NEGATIVE); COLOR,URINE YELLOW (YELLOW); LEUKOCYTE ESTERASE ,URINE NEGATIVE (NEGATIVE); NITRITE, URINE NEGATIVE (NEGATIVE); PH,URINE 5.5 (5.0-9.0); UGLUCOSE NEGATIVE (NEGATIVE)
[2019-07-15 21:05] LABS: BARBITURATE, URINE NEGATIVE ng/ml (NEG <=200)
[2019-07-15 21:06] LABS: BENZODIAZEPINE, URINE POSITIVE ng/mL (NEG <=200); CANNABINOID, URINE NEGATIVE ng/mL (NEG <=50); COCAINE, URINE NEGATIVE ng/mL (NEG <=300); OPIATE, URINE POSITIVE ng/mL (NEG <=2000); PHENCYCLIDINE SCREEN,URINE NEGATIVE ng/mL (NEG <=25)
--- NOTE | 2019-07-15 22:08 | NUR ---
WOTALIA PT. UP RT INFORMED HIM OF HIS BLOOD SUGAR AND THAT WE NEED TO COVER WITH INSULIN. "OK" OFFERED SOMETHING TO DRINK AND HE REFUSED. STATED "LATER" A/O X 4. ROM X 4. DENIES PAIN AT THIS TIME.
[2019-07-15 22:29] VITALS: BP 128/79
[2019-07-15] MEDS: MORPHINE SULFATE 2 MG/ML SYR IVP PRN (22:33)
[2019-07-16] VITALS: BP 123/71
--- NOTE | 2019-07-16 | NUR ---
PT. SLEEPING WELL. WOKE UP TO URINATE IN URINAL AND TOOK VITAL SIGNS. NO FURTHER COMPLAINT OF PAIN DONE. WENT BACK TO SLEEP AFTER.
--- NOTE | 2019-07-16 03:09 | NUR ---
ENDORSED TO THE NEXT RN/CHARGE NURSE FOR CONTINUITY OF CARE. SLEEPING BUT WAKES UP EASILY WHEN TOUCHED.
[2019-07-16] MEDS: MORPHINE SULFATE 2 MG/ML SYR IVP PRN ×2 (03:22→12:56)
--- NOTE | 2019-07-16 03:22 | NUR ---
RECEIVED PT AWAKE, COMPLAINING OF ABDOMINAL PAIN 10/05, VITAL SIGNS YDPSE-AN-038/67, HR-62, RR-18, SAT-95%, TEMP-98.2, MEDICATED PRN WITH MORPHINE IVP, PT VOIDED FREELY PER URINAL WITH 350ML STRAW COLORED URINE, TOLERATING ORAL FLUIDS AT THIS TIME, WITH 3 SMALL ABDOMINAL INCISION COVERED WITH DERMABOND, NO DRAINAGE OR BLEEDING NOTED, INCENTIVE MARCOS AT BEDSIDE, IVF INFUSING WELL, CONTINUE TO MONITOR CLOSELY
[2019-07-16] MEDS: metroNIDAZOLE 500 MG/NS PREMIX 100 ML IV SCH ×3 (04:25→21:02)
--- NOTE | 2019-07-16 04:25 | NUR ---
PT SLEEPING, EASILY AROUSABLE, PAIN RELIEF FROM MORPHINE IVP, DUE FLAGYL IVPB ADMINISTERED, NO DISTRESS NOTED, PT WENT BACK TO SLEEP, MONITORED CLOSELY.
[2019-07-16] MEDS: INSULIN LISPRO SLIDING SCALE 100 UNITS/ML VIAL SUBQ PRN ×3 (05:58→21:59)
--- NOTE | 2019-07-16 05:59 | NUR ---
PT AWAKE, DENIES ANY PAIN, BLOOD SUGAR CHECKED WITH 190 RESULT, 2 UNITS RISS ADMINISTERED, IVF INFUSING WELL, NO DISTRESS NOTED, MONITORED CLOSELY.
--- NOTE | 2019-07-16 06:31 | NUR ---
PATIENT HAS BEEN SCREENED AND CATEGORIZED MODERATE NUTRITION RISK. PATIENT WILL BE SEEN WITHIN 3-5 DAYS OF ADMISSION. 07/17/19-07/19/19 ANTONIO NOVAK MS, RDN
[2019-07-16] MEDS: BLOOD GLUCOSE MONITORING 1 DEV DEV FS SCH ×4 (06:32→21:00)
--- NOTE | 2019-07-16 07:30 | NUR ---
PT SLEEPING, EASILY AROUSABLE, NO SIGNS OF DISTRESS, REPORT GIVEN TO ELAN ALFONSO FOR CONTINUITY OF CARE.
[2019-07-16 07:36] LABS: BASOPHILS % (AUTO) 0.5 % (0.0-2.0); EOSINOPHILS % (AUTO) 0.4 % (0.0-4.0); HEMATOCRIT 38.3 % (36-52); HEMOGLOBIN 12.7 g/dL (12.0-18.0); LYMPHOCYTES # (AUTO) 1.3 K/uL (2.0-11.5); LYMPHOCYTES % (AUTO) 18.3 % (20.5-51.1); MEAN CORPUSCULAR HEMOGLOBIN 29 pg (27-31); MEAN CORPUSCULAR HGB CONC 33 g/dL (33-37); MEAN CORPUSCULAR VOLUME 87.1 fL (80-94); MONOCYTES # (AUTO) 0.5 K/uL (0.8-1.0); MONOCYTES % (AUTO) 6.8 % (1.7-9.3); NEUTROPHILS # (AUTO) 5.1 K/uL (1.8-7.7); PLATELET COUNT (AUTO) 277 K/uL (140-450); RED CELL DISTRIBUTION WIDTH 14.3 % (11.6-13.7); WHITE BLOOD COUNT (AUTO) 6.9 K/uL (4.8-10.8)
[2019-07-16 07:38] LABS: ALBUMIN 2.4 g/dL (3.4-5.0); ANION GAP 12.5 (8-16); POTASSIUM 4.5 mmol/L (3.5-5.1); TOTAL BILIRUBIN 1.4 mg/dL (0.0-1.0)
--- NOTE | 2019-07-16 07:47 | NUR ---
RECEIVED REPORT FROM CARD TENDER NURSE. PT IS LYING IN BED, SLEEPING, AROUSABLE TO VOICE; A&OX4. RESPIRATIONS ARE EVEN AND UNLABORED, BREATHING TO RA. RAC IV IS INTACT AND PATENT. 4 SMALL ABDOMINAL INCISIONS COVERED WITH DERMABOND, NOTED. REVIEWED PLAN OF CARE WITH PT. SAFETY MEASURES IN PLACE; CALL LIGHT WITHIN REACH, BED IN LOW POSITION. WILL CONTINUE TO MONITOR.
[2019-07-16 08:00] VITALS: BP 137/73
[2019-07-16] MEDS: PANTOPRAZOLE 40 MG INJ VIAL IVP SCH (08:50)
[2019-07-16] MEDS: ATORVASTATIN 20 MG TAB PO SCH (08:50)
--- NOTE | 2019-07-16 08:55 | NUR ---
PT'S SCHEDULED MEDS GIVEN. PT TOLERATED PO MED WELL. MEDICATION EDUCATION GIVEN, WITH PT VERBALIZING UNDERSTANDING. SAFETY MEASURES IN PLACE. NO DISTRESS NOTED. WILL CONTINUE TO MONITOR.
--- NOTE | 2019-07-16 11:15 | NUR ---
ASSISTED PT TO RESTROOM. RADIOLOGIST AND DR. LOMAS ARE NOW WITH PT AT BEDSIDE. PER DR LOMAS, DIET WAS CHANGED TO FULL LIQUID, AND IF TOLERATED WELL, SHOULD BE ORDERED TOLERATED. A REPEAT CBC AND CMP WERE ORDERED FOR TOMORROW.
[2019-07-16] MEDS: NACL 0.9% 1,000 ML IV SCH (13:56)
--- NOTE | 2019-07-16 13:57 | NUR ---
PT IS RESTING IN BED. BGL CHECKED; BGL:196. WILL GIVE COVERAGE.
[2019-07-16] MEDS: HYDROcodone/APAP 5/325 MG 1 TAB TAB PO PRN (15:34)
--- NOTE | 2019-07-16 15:34 | NUR ---
PT COMPLAINED OF 6/10 ABDOMINAL PAIN. PRN PO NORCO WAS GIVEN. MEDICATION EDUCATION, PROVIDED. WILL REASSESS PAIN. PT IN STABLE CONDITION. SAFETY MEASURES IN PLACE. WILL CONTINUE TO MONITOR.
[2019-07-16 16:00] VITALS: BP 140/77
--- NOTE | 2019-07-16 17:32 | NUR ---
AWAKE AND ALERT VATICAN CITIZEN SPEAKING VERBALLY RESPONSIVE TO RCPVERBAL COMMANDS TOLERATED INCENTIVE SPIROMETRY THERAPY WELL WITHOUT ADVERSE REACTIONS NOTED ENCOURAGED PATIENT WITH ACKNOWLEDGEMENT TO USE INCENTIVE SPIROMETRY EVERY 1-2 HOURS WHILE AWAKE
--- NOTE | 2019-07-16 19:25 | NUR ---
RECEIVED PT AAOX4 , NID , IV SITE INTACT AND PATENT , HAS 4 SURGICAL INCISSIONS ON ABD. - SEALED W/ DERMABOND - INTACT AND NO SIGNS OF BLEEDING NOTED AT THIS TIME , AMBULATORY . ENCOURAGE DO INCENTIVE SPIROMETRY .DENIES PAIN AT THIS TIME , AMBULATORY , POC DISCUSSED AND VERBALIZE UNDERSTANDING . SAFETY MEASURES IN PLACE - CALL LIGHT WITHIN REACH . WILL CONT. TO MONITOR.
--- NOTE | 2019-07-16 22:00 | NUR ---
MADE ROUNDS , DOING INCENTIVE SPIROMETRY BY HIMSELF . NO COMPLAIN MADE AT THIS TIME. WILL CONT. TO MONITOR.
[2019-07-17] VITALS: BP 133/70
--- NOTE | 2019-07-17 | NUR ---
MKADE ROUNDS . NO S/S OF ACUTE DISTRESS NOTED AT THIS TIME. CALL LIGHT WITHIN REACH.
--- NOTE | 2019-07-17 02:00 | NUR ---
SLEEPING - CHEST RISE AND FALL EQUALLY . CALL LIGHT WITHIN REACH.
--- NOTE | 2019-07-17 04:00 | NUR ---
MADE ROUNDS . RESP EVEN AND UNLABORED . WILL CONT. TO MONITOR.
[2019-07-17] MEDS: metroNIDAZOLE 500 MG/NS PREMIX 100 ML IV SCH ×3 (04:42→22:10)
[2019-07-17] MEDS: HYDROcodone/APAP 5/325 MG 1 TAB TAB PO PRN (04:56)
[2019-07-17] MEDS: BLOOD GLUCOSE MONITORING 1 DEV DEV FS SCH ×4 (06:40→21:00)
[2019-07-17] MEDS: INSULIN LISPRO SLIDING SCALE 100 UNITS/ML VIAL SUBQ PRN ×4 (06:44→22:32)
[2019-07-17 07:20] LABS: BASOPHILS # (AUTO) 0.1 K/uL (0.00-0.22); BASOPHILS % (AUTO) 0.7 % (0.0-2.0); EOSINOPHILS # (AUTO) 0.2 K/uL (0-0.4); EOSINOPHILS % (AUTO) 2.4 % (0.0-4.0); HEMATOCRIT 41.9 % (36-52); HEMOGLOBIN 13.8 g/dL (12.0-18.0); LYMPHOCYTES # (AUTO) 1.1 K/uL (2.0-11.5); LYMPHOCYTES % (AUTO) 13.1 % (20.5-51.1); MEAN CORPUSCULAR HEMOGLOBIN 28 pg (27-31); MEAN CORPUSCULAR HGB CONC 33 g/dL (33-37); MEAN CORPUSCULAR VOLUME 85.8 fL (80-94); MONOCYTES # (AUTO) 0.4 K/uL (0.8-1.0); MONOCYTES % (AUTO) 5.3 % (1.7-9.3); NEUTROPHILS # (AUTO) 6.4 K/uL (1.8-7.7); NEUTROPHILS % (AUTO) 78.5 % (42.2-75.2); PLATELET COUNT (AUTO) 306 K/uL (140-450); RED BLOOD CELL COUNT(AUTO) 4.89 MIL/uL (4.20-6.10); RED CELL DISTRIBUTION WIDTH 14.3 % (11.6-13.7); WHITE BLOOD COUNT (AUTO) 8.2 K/uL (4.8-10.8)
--- NOTE | 2019-07-17 07:35 | NUR ---
ENDORSED - PT - STABLE.
--- NOTE | 2019-07-17 07:35 | NUR ---
PT IS IN BED AWAKE AND RESPONSIVE TO VERBAL COMMANDS. PT AMBULATED TO RESTROOM. NO BOWEL MOVEMENT REPORTED. NO COMPLAINS OF PAIN REPORTED. WILL CONTINUE TO MONITOR. CALL LIGHT IN REACH.
[2019-07-17 08:00] VITALS: BP 134/81
[2019-07-17 08:57] LABS: ANION GAP 17.5 (8-16); CREATININE 0.9 mg/dL (0.6-1.3); POTASSIUM 4.5 mmol/L (3.5-5.1)
[2019-07-17] MEDS ORDERED: SENNA 8.6 MG TAB PO SCH (09:00)
[2019-07-17] MEDS: DOCUSATE SODIUM 100 MG GELCAP PO SCH (09:19)
[2019-07-17] MEDS: PANTOPRAZOLE 40 MG INJ VIAL IVP SCH (09:19)
[2019-07-17] MEDS: ATORVASTATIN 20 MG TAB PO SCH (09:19)
[2019-07-17 09:26] LABS: ALBUMIN 2.9 g/dL (3.4-5.0)
--- NOTE | 2019-07-17 09:30 | NUR ---
PT IS RESTING IN BED. PT IS ALERT AWAKE AND RESPONSIVE TO VERBAL STIMULI. PT AMBULATES TO BATHROOM WITH STEADY GAIT. NO DISTRESS NOTED. SAFETY MEASURES IN PLACE. WILL CONTINUE TO MONITOR. CALL LIGHT IN REACH.
[2019-07-17 10:59] LABS: CHOL/HDL RATIO 7.9 (1-4.5)
[2019-07-17] MEDS ORDERED: metFORMIN 850 MG TAB PO SCH (11:10)
--- NOTE | 2019-07-17 12:30 | NUR ---
PT IS RESTING IN BED. PT IS ALERT AWAKE AND RESPONSIVE TO VERBAL STIMULI. PT IS ON NPO. BLOOD SUGAR NOTED AT 243. METFORMIN GIVEN TO PATIENT. 2 UNITS OF HUMALOG GIVEN BECAUSE PT IS ON NOT. NOTIFIED DRCalin NO DISTRESS NOTED. SAFETY MEASURES IN PLACE. WILL CONTINUE TO MONITOR. CALL LIGHT IN REACH.
[2019-07-17] MEDS: NACL 0.9% 1,000 ML IV SCH (12:43)
--- NOTE | 2019-07-17 14:09 | NUR ---
PT IS OFF UNIT TAKEN FOR HIDA SCAN
[2019-07-17 16:00] VITALS: BP 150/86
[2019-07-17] MEDS ORDERED: SIMETHICONE 80 MG TAB.CHEW PO SCH (16:00)
--- NOTE | 2019-07-17 19:24 | NUR ---
SHIFT REPORT GIVEN TO [facility]ER NURSE. PT IS IN STABLE CONDITION. CALL LIGHT IN REACH.
--- NOTE | 2019-07-17 19:30 | NUR ---
REPORT RECEIVED FROM GILES ALFONSO DAYSHIFT NURSE AT BEDSIDE FOR CONTINUITY OF CARE, PT IN STABLE CONDITION. PT IS AOX4 SITTING UP IN BED WITH SKIN INTACT AND LAC RUNNING N/S AT 20MLS/HR. ALL UNIVERSAL PRECAUTIONS IN PLACE. V/S FOLLOWS: T 98.6 P 78 R 18 B/P 143/83 02 94% ON ROOM AIR. ALL UNIVERSAL FALLS PRECAUTIONS IN PLACE. PT DENIES ANY PAIN OR DISCOMFORT.
--- NOTE | 2019-07-17 20:50 | NUR ---
PT GIVEN DUE MEDS OF IV ABT FLAGYL WELL IVP REGLAN AND S[place]. EDUCATION REGARDING MEDICATION PROVIDED AT BEDSIDE FOR CONTINUITY OF CARE, PT IN STABLE CONDITION. ALL UNIVERSAL PRECAUTIONS IN PLACE.
--- NOTE | 2019-07-17 21:15 | NUR ---
DAUGHTER CALLED AND WAS UPDATED ON FATHER'S CONDITION AND SPOKE WITH HIM WELL. RADIOLOGY CALLED AND PT WAS BEING BROUGHT DOWN FOR ORDERED REPEAT HIDA A SCAN.
--- NOTE | 2019-07-17 21:40 | NUR ---
PT RETURNED FROM [facility] CRISTINA HENRI THE TECH CALLED AND HE WOULD NEED TO KEEP PT NPO DUE TO NEED TO REPEAT THE TESTS AT 7 AM. IT WAS EXPLAINED TO PT AND HE VERBALIZED UNDERSTANDING.
[2019-07-17] MEDS: SENNA 8.6 MG TAB PO SCH (22:21)
[2019-07-17] MEDS: METOCLOPRAMIDE 10 MG/2 ML INJ VIAL IVP SCH (22:30)
[2019-07-18] VITALS: BP 159/88
--- NOTE | 2019-07-18 00:15 | NUR ---
PT IN BED V/S FOLLOWS: T 98.4 P 72 R 18 B/P 159/88 02 95% ON ROOM AIR;. ALL REQUESTED NEEDS ATTENDED AND CALL GRECO IN REACH.
--- NOTE | 2019-07-18 04:00 | NUR ---
PT IN BED ASLEEP BUT AROUSABLE TO LIGHT TOUCH. NO C/O VOICED SURGICAL SITES INTACT AND ASYMPTOMATIC. V/S FOLLOWS: T 98.4 P 66 R 18 B/P 145/85 02 98% ON ROOM AIR. FLUIDS RUNNING ORDERED, IV SITE INTACT AND ASYMPTOMATIC, ALL UNIVERSAL FALLS PRECAUTIONS IN PLACE.
[2019-07-18] MEDS: metroNIDAZOLE 500 MG/NS PREMIX 100 ML IV SCH ×2 (04:47→13:43)
[2019-07-18] MEDS: METOCLOPRAMIDE 10 MG/2 ML INJ VIAL IVP SCH ×2 (04:47→13:43)
--- NOTE | 2019-07-18 05:00 | NUR ---
PT GIVEN ORDERED FLAGYL HUNG AND RUNNING ORDERED. , PT ALSO GIVEN IVP REGLAN ORDERED. EDUCATION REGARDING MEDICATIONS INCLUDING SIDE EFFECTS PROVIDED AT BEDSIDE.
[2019-07-18] MEDS: NACL 0.9% 1,000 ML IV SCH (05:06)
--- NOTE | 2019-07-18 06:00 | NUR ---
LABS DRAWN AT BEDSIDE, BLOOD SUGAR IS 175, PT GIVEN 2 UNITS OF HUMALOG COVERAGE PER S/S.
[2019-07-18] MEDS: BLOOD GLUCOSE MONITORING 1 DEV DEV FS SCH ×3 (06:32→16:47)
[2019-07-18] MEDS: INSULIN LISPRO SLIDING SCALE 100 UNITS/ML VIAL SUBQ PRN ×3 (06:39→16:48)
[2019-07-18 07:38] LABS: BASOPHILS % (AUTO) 0.6 % (0.0-2.0); EOSINOPHILS # (AUTO) 0.3 K/uL (0-0.4); EOSINOPHILS % (AUTO) 4.4 % (0.0-4.0); HEMATOCRIT 40.2 % (36-52); HEMOGLOBIN 13.4 g/dL (12.0-18.0); LYMPHOCYTES # (AUTO) 1.5 K/uL (2.0-11.5); LYMPHOCYTES % (AUTO) 22.7 % (20.5-51.1); MEAN CORPUSCULAR HEMOGLOBIN 28 pg (27-31); MEAN CORPUSCULAR HGB CONC 33 g/dL (33-37); MEAN CORPUSCULAR VOLUME 83.8 fL (80-94); MONOCYTES # (AUTO) 0.5 K/uL (0.8-1.0); MONOCYTES % (AUTO) 6.7 % (1.7-9.3); NEUTROPHILS # (AUTO) 4.5 K/uL (1.8-7.7); NEUTROPHILS % (AUTO) 65.6 % (42.2-75.2); PLATELET COUNT (AUTO) 293 K/uL (140-450); RED CELL DISTRIBUTION WIDTH 14.3 % (11.6-13.7); WHITE BLOOD COUNT (AUTO) 6.8 K/uL (4.8-10.8)
--- NOTE | 2019-07-18 07:50 | NUR ---
RECEIVED REPORT FROM NIGHT NURSE. PT IN STABLE CONDITION. NO DISTRESS NOTED, DENIES PAIN. RESPIRATIONS EVEN AND UNLABORED ON ROOM AIR. SKIN INTACT. IV IN PLACE PATENT AND ASYMPTOMATIC INFUSING PER ORDER. BED IN LOW POSITION. SAFETY MEASURES IN PLACE. CALL LIGHT WITHIN REACH. WILL CONTINUE TO MONITOR.
[2019-07-18 08:00] VITALS: BP 138/82
[2019-07-18 08:00] LABS: ALBUMIN 2.6 g/dL (3.4-5.0); ANION GAP 12.1 (8-16); CARBON DIOXIDE 26.8 mmol/L (21-32); CREATININE 0.9 mg/dL (0.6-1.3); POTASSIUM 3.9 mmol/L (3.5-5.1); TOTAL BILIRUBIN 3.5 mg/dL (0.0-1.0)
[2019-07-18] MEDS: PANTOPRAZOLE 40 MG INJ VIAL IVP SCH (09:27)
[2019-07-18] MEDS: SENNA 8.6 MG TAB PO SCH (09:27)
[2019-07-18] MEDS: DOCUSATE SODIUM 100 MG GELCAP PO SCH (09:28)
--- NOTE | 2019-07-18 09:32 | NUR ---
MEDICATIONS ADMINISTERED PER ORDER, PT TOLERATED WELL, NO DISTRESS NOTED, DENIES PAIN AT THIS TIME. SAFETY MEASURES IN PLACE, CALL LIGHT WITHIN REACH, WILL CONTINUE TO MONITOR.
--- NOTE | 2019-07-18 09:40 | NUR ---
PT TRANSFERRED TO OR FOR ERCP PROCEDURE.
[2019-07-18] MEDS ORDERED: PROPOFOL 200 MG/20 ML VIAL IV ONE (09:45)
[2019-07-18] MEDS ORDERED: MIDAZOLAM 2 MG/2 ML VIAL ONE (09:45)
[2019-07-18] MEDS ORDERED: GLUC-805 FS (11:59)
[2019-07-18] MEDS ORDERED: ACET-1182 PO (11:59)
[2019-07-18] MEDS ORDERED: ROC2I IV (12:00)
[2019-07-18] MEDS ORDERED: HUMSLIDE SUBQ (12:01)
[2019-07-18] MEDS ORDERED: DOCU-299 PO (12:01)
[2019-07-18] MEDS ORDERED: METR250T2 IV (12:01)
[2019-07-18] MEDS ORDERED: LACT10CA1 PO (12:02)
--- NOTE | 2019-07-18 13:44 | NUR ---
PT AWAKE ALERT AT THIS TIME AOX4. DENIES PAIN , DENIES N/V. APPEARS COMFORTABLE IN BED.
--- NOTE | 2019-07-18 13:51 | NUR ---
DR. EATON AND DR. VILLALOBOS SPEAKING WITH PT AT BEDSIDE AT THIS TIME
--- NOTE | 2019-07-18 14:06 | NUR ---
PROVIDED PT WITH AN APPLE JUICE AND JELLO. PT DENIES N/V.
--- NOTE | 2019-07-18 14:20 | NUR ---
07/18/19 RD INITIAL ASSESSMENT COMPLETED PLEASE REFER TO NUTRITION ASSESSMENT UNDER CARE ACTIVITY FOR ESTIMATED NUTRITIONAL NEEDS. 1. CONTINUE CLEAR LIQUID DIET TOLERATED 2. RECOMMEND ENSURE CLEAR TID TOLERATED 3. ADVANCE DIET PER [facility] 4. RD TO FOLLOW-UP 2-3 DAYS, HIGH RISK BRANDEE FIERRO, AGUSTO
[2019-07-18 15:48] VITALS: BP 126/75
--- NOTE | 2019-07-18 18:01 | NUR ---
PT REFUSING WOUND D/C PHOTO AT THIS TIME
--- NOTE | 2019-07-18 18:18 | NUR ---
DISCHARGE PAPERWORK REVIEWED WITH PT. PT DID NOT HAVE ANY QUESTIONS/CONCERNS.
--- NOTE | 2019-07-18 18:21 | NUR ---
PT PICKED UP BY [facility] TO [facility]. REPORT TO [facility].
--- NOTE | 2019-07-18 18:35 | NUR ---
REPORT TO KADEN SANDERS AT [address] [place] [address].
== END 2019-07-18 18:25 | disposition short-term general hospital (02) | DRG 263 ==
LOC: MED 14:43 → MTU 16:58
PROVIDERS: ADMIT General Practice; ATTEND General Practice
PROC: 0DNU4ZZ Release Omentum, Percutaneous Endoscopic Approach (ICD-10-PCS; 2019-07-15)
PROC: 0FT44ZZ Resection of Gallbladder, Percutaneous Endoscopic Approach (ICD-10-PCS; principal; 2019-07-15 14:00)
PROC: BF101ZZ Fluoroscopy of Bile Ducts using Low Osmolar Contrast (ICD-10-PCS; 2019-07-18)
PROC: 0FJB8ZZ Inspection of Hepatobiliary Duct, Via Natural or Artificial Opening Endoscopic (ICD-10-PCS; 2019-07-18)
DX: K81.0 Acute cholecystitis (principal); E43 Unspecified severe protein-calorie malnutrition; K65.9 Peritonitis, unspecified; K76.0 Fatty (change of) liver, not elsewhere classified; K83.1 Obstruction of bile duct; E87.1 Hypo-osmolality and hyponatremia; E11.65 Type 2 diabetes mellitus with hyperglycemia; K81.1 Chronic cholecystitis; E87.6 Hypokalemia; J98.11 Atelectasis; E78.5 Hyperlipidemia, unspecified; K82.8 Other specified diseases of gallbladder; K66.0 Peritoneal adhesions (postprocedural) (postinfection); Z68.29 Body mass index [BMI] 29.0-29.9, adult; Z91.013 Allergy to seafood; Z83.3 Family history of diabetes mellitus; K91.89 Other postprocedural complications and disorders of digestive system; Y83.8 Other surgical procedures as the cause of abnormal reaction of the patient, or of later complication, without mention of misadventure at the time of the procedure; Y92.234 Operating room of hospital as the place of occurrence of the external cause
CPT/HCPCS: 36415; 71045; 74018; 74330; 76705; 78445; 80048; 80053; 80305; 81003; 82948; 82977; 83690; 83735; 84100; 85025; 85610; 85730; 86886; 86900; 86901; 87081; 88304; 96361; 96374; 96375; 99285; A9510; C1769; C1887; C9113; J0696; J1170; J1815; J1885; J2250; J2270; J2405; J2704; J2765; J3490; J7030; J7042; J7060; Q0092